=== PATIENT | female | born 1995 | race Two or more races ===

== ENCOUNTER 2021-03-17 01:49 | Emergency (ER) | payer SELFPAY ==
[~2021-03-17] VITALS: Ht 165.1 cm; Wt 50.0 kg
[2021-03-17] MEDS ORDERED: ONDANSETRON HCL 4MG/2ML INJ IV STA (01:56)
[2021-03-17] MEDS ORDERED: SODIUM CHLORIDE 0.9% 1,000 ML IV ONE (02:00)
[2021-03-17] MEDS ORDERED: FLUMAZENIL 0.1 MG/ML 5ML VIAL IV ONE (02:00)
[2021-03-17] MEDS ORDERED: PROPOFOL 10MG/ML 100ML 100 ML IV ONE (02:15)
[2021-03-17] MEDS ORDERED: VECURONIUM BROMIDE 10 MG/VIAL IV ONE ×2 (02:15→07:56)
[2021-03-17] MEDS ORDERED: ETOMIDATE 2MG/ML 10ML VIAL IV ONE ×2 (02:15→07:56)
[2021-03-17 02:58] LABS: BASOPHILS % 0.8 % (0.0-2.0); EOSINOPHILS % 1.3 % (0.0-5.0); HEMATOCRIT. 32.2 % (36.0-48.0); HEMOGLOBIN. 10.7 g/dL (12.0-16.0); LYMPHOCYTES % 26.3 % (20.0-50.0); MEAN CORPUSCULAR HEMOGLOBIN 31.8 pg (28.0-32.0); MEAN CORPUSCULAR VOLUME 95.6 fL (81.0-99.0); MEAN PLATELET VOLUME 8.4 fl (7.4-10.4); MONOCYTES % 11.7 % (2.0-8.0); NEUTROPHILS % 59.9 % (40.0-76.0); PLATELET 352 x1000/uL (130-400); RED BLOOD CELL COUNT 3.37 mill/uL (4.2-5.4)
[2021-03-17 02:59] LABS: INR 1.1; PROTHROMBIN TIME 11.5 sec (9.6-11.0)
[2021-03-17 03:02] LABS: HCG SCREEN NEGATIVE
[2021-03-17 03:05] LABS: CHLORIDE 117 mEq/L (98-107)
[2021-03-17 03:09] LABS: CLARITY URINE CLEAR (CLEAR); COLOR URINE YELLOW (YELLOW); KETONES URINE TRACE (NEGATIVE); LEUKOCYTE ESTERASE URINE NEGATIVE (NEGATIVE); NITRITE URINE NEGATIVE (NEGATIVE); OCCULT BLOOD URINE NEGATIVE (NEGATIVE); PH URINE 5.5 (4.5-8.0); PROTEIN URINE NEGATIVE (NEGATIVE); SPECIFIC GRAVITY URINE 1.029 (1.005-1.030); UROBILINOGEN URINE 0.2 E.U./dL (0.2-1.0)
[2021-03-17 03:10] LABS: ETHANOL BLOOD < 10 mg/dL
[2021-03-17 03:11] LABS: BG BASE EXCESS -2.2 mmol/L (-2.0-2.0); BG CARBOXYHEMOGLOBIN 0.3 % (0.5-1.5); BG DEOXYHEMOGLOBIN 0.3 % (0.0-5.0); BG HCO3 ACT 22.6 mmol/L (22.0-26.0); BG METHEMOGLOBIN 0.3 % (0.0-1.5); BG OXYGEN SATURATION 99.7 % (92.0-98.5); BG OXYHEMOGLOBIN 99.1 % (94.0-97.0); BG PCO2 38.8 mmHg (35.0-45.0); BG PH 7.383 (7.350-7.450); BG TOTAL HEMOGLOBIN 12.4 g/dL (12.0-18.0)
[2021-03-17] MEDS ORDERED: LORAZEPAM 2MG/ML CPJ IV PRN (04:45)
[2021-03-17 05:41] LABS: *BARBITURATES SCREEN URINE NEGATIVE (NEGATIVE); *BENZODIAZEPINES SCREEN URINE NEGATIVE (NEGATIVE); *COCAINE SCREEN URINE NEGATIVE (NEGATIVE)
[2021-03-17 05:42] LABS: CANNABINOID URINE SCREEN NEGATIVE (NEGATIVE); METHADONE URINE SCREEN NEGATIVE (NEGATIVE); OPIATES URINE SCREEN NEGATIVE (NEGATIVE); PHENCYCLIDINE URINE SCREEN NEGATIVE (NEGATIVE)
[2021-03-17 06:01] LABS: *AMPHETAMINES SCREEN URINE PRESUMTIVE POSITIVE (NEGATIVE)
[2021-03-17] MEDS ORDERED: PROPOFOL 10MG/ML 100ML 100 ML IV PRN (06:30)
[2021-03-17] MEDS ORDERED: SODIUM CHLORIDE 0.9% 10ML VIAL ONE (07:56)
[2021-03-17] MEDS ORDERED: LORAZEPAM 2MG/ML CPJ IV NR (08:41)
[2021-03-17] MEDS ORDERED: ACETAMINOPHEN 325MG TABLET PO PRN (08:45)
[2021-03-17] MEDS ORDERED: ONDANSETRON HCL 4MG/2ML INJ IV PRN (08:45)
[2021-03-17] MEDS ORDERED: PANTOPRAZOLE SODIUM 40 MG/VIAL IV SCH (09:00)
[2021-03-17] MEDS ORDERED: POTASSIUM CHLORIDE 20MEQ TABLET SR PO SCH (09:00)
[2021-03-17 12:30] VITALS: BP 106/61
== END 2021-03-17 12:35 | disposition left against medical advice (07) ==
LOC: ER 01:49 → EDBD 01:49 → EDBEDREQ 04:52 → EDBEDREQTM 04:52 → EDBEDREQSVC 11:25 → ER 12:35 → CANBEDREQ 20:23
DX: T43.621A Poisoning by amphetamines, accidental (unintentional), initial encounter (principal); J96.00 Acute respiratory failure, unspecified whether with hypoxia or hypercapnia; G92 Toxic encephalopathy; T40.991A Poisoning by other psychodysleptics [hallucinogens], accidental (unintentional), initial encounter; F15.129 Other stimulant abuse with intoxication, unspecified; F16.129 Hallucinogen abuse with intoxication, unspecified; E16.2 Hypoglycemia, unspecified; F15.10 Other stimulant abuse, uncomplicated; E87.6 Hypokalemia; E87.8 Other disorders of electrolyte and fluid balance, not elsewhere classified; E43 Unspecified severe protein-calorie malnutrition; R41.82 Altered mental status, unspecified; R45.1 Restlessness and agitation; M79.662 Pain in left lower leg; M79.661 Pain in right lower leg; M79.602 Pain in left arm; M79.601 Pain in right arm; R07.9 Chest pain, unspecified; D64.9 Anemia, unspecified; Z71.51 Drug abuse counseling and surveillance of drug abuser; Z78.1 Physical restraint status; R06.02 Shortness of breath; R00.0 Tachycardia, unspecified; Z68.1 Body mass index [BMI] 19.9 or less, adult; Y92.59 Other trade areas as the place of occurrence of the external cause
CPT/HCPCS: 36415; 36600; 70450; 71045; 80053; 80305; 80307; 80320; 80329; 81003; 82140; 82375; 82805; 82962; 83605; 84484; 84703; 85025; 85610; 93005; 94640; 96361; 96365; 96366; 96375; 96376; 99291; C9113; J2060; J2405; J2704; J3490; J7030; Z7610; G0480